=== PATIENT | female | born 1990 | race Caucasian/White ===

== ENCOUNTER 2016-09-23 15:23 | Emergency (ER) | payer BC ==
[~2016-09-23] VITALS: Ht 167.6 cm; Wt 104.5 kg
[2016-09-23 15:24] VITALS: BP 141/85
[2016-09-23] MEDS ORDERED: IBUPROFEN 200 MG TABLET PO ONE (16:30)
== END 2016-09-23 16:34 | disposition home or self-care (01) ==
LOC: ED 16:15
DX: S93.421A Sprain of deltoid ligament of right ankle, initial encounter (principal); S90.01XA Contusion of right ankle, initial encounter; X50.1XXA Overexertion from prolonged static or awkward postures, initial encounter; Y93.89 Activity, other specified; Y92.69 Other specified industrial and construction area as the place of occurrence of the external cause; Y99.8 Other external cause status
CPT/HCPCS: 99284